=== PATIENT | female | born 1935 | race Hispanic/Latino ===

== ENCOUNTER → 2024-02-12 13:54 | Outpatient (REF) | payer MEDICARE, SELFPAY | LOC: HWRAD 13:54 | PROVIDERS: ATTENDING PHYSICIAN Nurse Practitioner Family | DX: M54.50 Low back pain, unspecified (principal) | CPT/HCPCS: 74176 ==

== ENCOUNTER → 2024-03-21 16:00 | Outpatient (REF) | payer MEDICARE, SELFPAY | LOC: RAD 16:00 | PROVIDERS: ATTENDING PHYSICIAN Specialist; FAMILY PHYSICIAN Family Medicine | DX: N20.1 Calculus of ureter (principal) | CPT/HCPCS: 76770 ==

== ENCOUNTER → 2025-01-07 08:46 | Outpatient (REF) | payer MEDICARE, SELFPAY | LOC: RAD 08:46 | PROVIDERS: ATTENDING PHYSICIAN Specialist; FAMILY PHYSICIAN Family Medicine | DX: N20.0 Calculus of kidney (principal) | CPT/HCPCS: 74176 ==